=== PATIENT | female | born 1970 | race African-American/Black ===

== ENCOUNTER 2018-11-06 10:15 | Emergency (ER) | payer OTHER ==
[~2018-11-06] VITALS: Ht 167.6 cm; Wt 68.0 kg
[2018-11-06] MEDS ORDERED: ACETAMINOPHEN WITH CODEINE 300/30MG TABLET PO ONE (11:00)
[2018-11-06 12:28] LABS: BASOPHILS % 0.5 % (0.0-2.0); EOSINOPHILS % 2.3 % (0.0-5.0); HEMATOCRIT. 40.2 % (36.0-48.0); HEMOGLOBIN. 13.2 g/dL (12.0-16.0); LYMPHOCYTES % 19.8 % (20.0-50.0); MEAN CORPUSCULAR VOLUME 87.8 fL (81.0-99.0); MEAN PLATELET VOLUME 8.2 fl (7.4-10.4); MONOCYTES % 8.4 % (2.0-8.0); PLATELET 251 x1000/uL (130-400); RED BLOOD CELL COUNT 4.57 mill/uL (4.2-5.4); RED CELL DISTRIBUTION WIDTH 14.7 % (11.6-14.6)
[2018-11-06 12:35] LABS: CHLORIDE 103 mEq/L (98-107)
[2018-11-06 13:31] LABS: *AMPHETAMINES SCREEN URINE NEGATIVE (NEGATIVE); *BARBITURATES SCREEN URINE NEGATIVE (NEGATIVE)
[2018-11-06 13:32] LABS: *BENZODIAZEPINES SCREEN URINE NEGATIVE (NEGATIVE); METHADONE URINE SCREEN NEGATIVE (NEGATIVE)
[2018-11-06 13:33] LABS: CANNABINOID URINE SCREEN NEGATIVE (NEGATIVE); PHENCYCLIDINE URINE SCREEN NEGATIVE (NEGATIVE)
[2018-11-06 13:36] VITALS: BP 123/79
[2018-11-06 13:40] LABS: *COCAINE SCREEN URINE PRESUMTIVE POSITIVE (NEGATIVE); OPIATES URINE SCREEN PRESUMTIVE POSITIVE (NEGATIVE)
== END 2018-11-06 13:59 | disposition home or self-care (01) ==
LOC: ER 10:15
DX: R07.89 Other chest pain (principal); Z86.19 Personal history of other infectious and parasitic diseases; Z88.0 Allergy status to penicillin
CPT/HCPCS: 36415; 71045; 80305; 83880; 84484; 93005; 99284

== ENCOUNTER 2024-07-26 14:31 | Inpatient (IN) | payer MEDICAID, OTHER ==
[2024-07-25 22:30] VITALS: BP 125/86; PULSE 66; RESP 18; TEMP 36.2; O2SAT 97
[~2024-07-26] VITALS: Ht 162.6 cm; Wt 57.2 kg
[2024-07-26 14:36] VITALS: O2SAT 99
[2024-07-26 15:39] LABS: BASOPHILS % 1.1 % (0.0-2.0); EOSINOPHILS % 5.4 % (0.0-5.0); HEMOGLOBIN. 8.3 g/dL (12.0-16.0); LYMPHOCYTES % 25.5 % (20.0-50.0); MEAN CORPUSCULAR HEMOGLOBIN 27.9 pg (28.0-32.0); MEAN CORPUSCULAR HGB CONC 31.9 g/dL (31.0-37.0); MEAN CORPUSCULAR VOLUME 87.3 fL (81.0-99.0); MEAN PLATELET VOLUME 7.3 fl (7.4-10.4); MONOCYTES % 6.4 % (2.0-8.0); NEUTROPHILS % 61.6 % (40.0-76.0); PLATELET 293 x1000/uL (130-400); RED BLOOD CELL COUNT 2.98 mill/uL (4.2-5.4); RED CELL DISTRIBUTION WIDTH 18.7 % (11.6-14.6)
[2024-07-26 15:47] LABS: CHLORIDE 105 mEq/L (98-107); POTASSIUM 4.6 mEq/L (3.5-5.1); SODIUM 141 mEq/L (136-145)
[2024-07-26 15:48] LABS: CALCIUM 6.5 mg/dL (8.7-10.4); CARBON DIOXIDE 18 mEq/L (21-32)
[2024-07-26 15:53] LABS: GLUCOSE 98 mg/dL (70-105)
[2024-07-26 15:55] LABS: TROPONIN I HIGH SENSITIVITY 17 ng/L (3.0-34)
[2024-07-26 16:01] LABS: CREATININE 10.3 mg/dL (0.6-1.0); UREA NITROGEN BLOOD 103 mg/dL (9-23)
[2024-07-26 17:22] LABS: INR 0.9; PROTHROMBIN TIME 10.1 sec (9.6-11.0)
[2024-07-26 22:30] VITALS: BP 125/86; PULSE 66; RESP 18; TEMP 36.2; O2SAT 97
[2024-07-26 22:54] VITALS: BP 125/86; PULSE 66; RESP 18; TEMP 36.2
[2024-07-26] MEDS ORDERED: DEXTROSE 50% WATER 50ML SYRINGE IV PRN (23:00)
[2024-07-27] VITALS (13 sets, daily range): BP systolic 81–135; BP diastolic 54–83; PULSE 50–75; RESP 18–20; TEMP 36.114–36.7; O2SAT 20–100
[2024-07-27] MEDS: BLOOD SUGAR DIAGNOSTIC STRIP TEST SCH (06:00)
[2024-07-27 07:11] LABS: POTASSIUM 4.4 mEq/L (3.5-5.1)
[2024-07-27 07:12] LABS: CALCIUM 6.4 mg/dL (8.7-10.4)
[2024-07-27 07:13] LABS: BASOPHILS % 0.9 % (0.0-2.0); DIFFERENTIAL COMMENT 0; EOSINOPHILS % 9.9 % (0.0-5.0); HEMATOCRIT. 25.9 % (36.0-48.0); HEMOGLOBIN. 8.3 g/dL (12.0-16.0); MEAN CORPUSCULAR HEMOGLOBIN 27.6 pg (28.0-32.0); MEAN CORPUSCULAR HGB CONC 31.9 g/dL (31.0-37.0); MEAN CORPUSCULAR VOLUME 86.3 fL (81.0-99.0); MEAN PLATELET VOLUME 7.4 fl (7.4-10.4); NEUTROPHILS % 40.2 % (40.0-76.0); PLATELET 280 x1000/uL (130-400); RED CELL DISTRIBUTION WIDTH 19.2 % (11.6-14.6); WHITE BLOOD COUNT 3.4 x1000/uL (4.5-11.0)
[2024-07-27] MEDS: INSULIN LISPRO 100 UNITS/ML SUBCUT SCH (08:00)
[2024-07-27] MEDS: AMLODIPINE 10MG TABLET PO SCH (08:31)
[2024-07-27] MEDS: ASPIRIN 81MG TABLET PO SCH (08:33)
[2024-07-27] MEDS: FOLIC ACID/VITAMIN B COMP W-C TABLET PO SCH (08:33)
[2024-07-27 08:35] LABS: CREATININE 10.5 mg/dL (0.6-1.0)
[2024-07-27 08:37] LABS: PHOSPHORUS 10.7 mg/dL (2.5-4.9)
[2024-07-27] MEDS: SEVELAMER CARBONATE 800 MG TABLET PO SCH (17:56)
[2024-07-27 19:05] LABS: PHOSPHORUS 10.5 mg/dL (2.5-4.9)
[2024-07-27 19:16] LABS: HEPATITIS B SURFACE ANTIGEN NEGATIVE (Negative)
[2024-07-27 19:36] LABS: HEPATITIS A AB IGM NEGATIVE (Negative)
[2024-07-27 19:37] LABS: HEPATITIS B CORE AB IGM NEGATIVE (Negative)
[2024-07-27 20:03] LABS: HEPATITIS C AB REACTIVE (Pos) (Negative)
[2024-07-27] MEDS: SODIUM BICARBONATE 650MG TABLET PO SCH (23:05)
[2024-07-28] VITALS (7 sets, daily range): BP systolic 100–127; BP diastolic 52–75; PULSE 57–97; RESP 17–18; TEMP 36.5–36.7; O2SAT 95–100
[2024-07-28 07:33] LABS: CALCIUM 7.1 mg/dL (8.7-10.4); CHLORIDE 105 mEq/L (98-107); POTASSIUM 3.8 mEq/L (3.5-5.1); SODIUM 142 mEq/L (136-145)
[2024-07-28 07:34] LABS: CARBON DIOXIDE 24 mEq/L (21-32)
[2024-07-28 07:39] LABS: GLUCOSE 63 mg/dL (70-105); UREA NITROGEN BLOOD 48 mg/dL (9-23)
[2024-07-28 07:41] LABS: PHOSPHORUS 5.2 mg/dL (2.5-4.9)
[2024-07-28 08:08] LABS: CREATININE 6.4 mg/dL (0.6-1.0)
[2024-07-28] MEDS: CALCIUM 1250MG TABLET (500MG ELEMENTAL CALCIUM) PO SCH (11:00)
[2024-07-28] MEDS: SODIUM HYPOCHLORITE 0.125% 473ML SOLUTION TOP SCH (12:30)
[2024-07-28 17:07] LABS: BASOPHILS % 0.9 % (0.0-2.0); DIFFERENTIAL COMMENT 0; EOSINOPHILS % 5.3 % (0.0-5.0); HEMATOCRIT. 28.9 % (36.0-48.0); HEMOGLOBIN. 9.1 g/dL (12.0-16.0); LYMPHOCYTES % 27.6 % (20.0-50.0); MEAN CORPUSCULAR HEMOGLOBIN 27.3 pg (28.0-32.0); MEAN CORPUSCULAR HGB CONC 31.5 g/dL (31.0-37.0); MEAN CORPUSCULAR VOLUME 86.5 fL (81.0-99.0); MEAN PLATELET VOLUME 7.5 fl (7.4-10.4); MONOCYTES % 11.7 % (2.0-8.0); NEUTROPHILS % 54.5 % (40.0-76.0); PLATELET 286 x1000/uL (130-400); RED BLOOD CELL COUNT 3.35 mill/uL (4.2-5.4); RED CELL DISTRIBUTION WIDTH 19.9 % (11.6-14.6); WHITE BLOOD COUNT 4.2 x1000/uL (4.5-11.0)
[2024-07-29] VITALS (13 sets, daily range): BP systolic 108–141; BP diastolic 61–86; PULSE 6–75; RESP 14–20; TEMP 36.2–36.7; O2SAT 97–100
[2024-07-29 06:08] LABS: COMPLEMENT C3 84 mg/dL (82-167); COMPLEMENT C4 23 mg/dL (12-38)
[2024-07-29] MEDS: EPOETIN ALFA-EPBX 4,000 UNIT/ML VIAL SUBCUT SCH (20:58)
[2024-07-30] VITALS: BP 123/63; PULSE 81; RESP 20; TEMP 37; O2SAT 97
[2024-07-30 04:00] VITALS: BP 119/61; PULSE 71; RESP 20; TEMP 36.8; O2SAT 97
[2024-07-30 08:11] VITALS: BP 145/72; PULSE 77; RESP 17; TEMP 37.2; O2SAT 100
[2024-07-30 08:53] LABS: CARBON DIOXIDE 22 mEq/L (21-32); CHLORIDE 106 mEq/L (98-107); POTASSIUM 4.4 mEq/L (3.5-5.1); SODIUM 141 mEq/L (136-145)
[2024-07-30 08:54] LABS: CALCIUM 7.3 mg/dL (8.7-10.4)
[2024-07-30 08:58] LABS: GLUCOSE 78 mg/dL (70-105)
[2024-07-30 08:59] LABS: UREA NITROGEN BLOOD 55 mg/dL (9-23)
[2024-07-30 09:01] LABS: PHOSPHORUS 4.7 mg/dL (2.5-4.9)
[2024-07-30 09:10] LABS: CREATININE 7.3 mg/dL (0.6-1.0)
[2024-07-30 12:25] VITALS: BP 126/77; PULSE 72; RESP 20; TEMP 36.1; O2SAT 99
== END 2024-07-30 13:30 | disposition left against medical advice (07) | DRG 470 ==
LOC: ER 14:31 → EDBEDREQ 18:50 → EDBEDREQTM 18:50 → ENRESERV 22:01 → 7WST 22:06
PROVIDERS: ADMIT Internal Medicine; ATTEND Internal Medicine
PROC: 5A1D70Z Performance of Urinary Filtration, Intermittent, Less than 6 Hours Per Day (ICD-10-PCS; principal; 2024-07-27)
PROC: 5A1D70Z Performance of Urinary Filtration, Intermittent, Less than 6 Hours Per Day (ICD-10-PCS; 2024-07-29)
DX: I12.0 Hypertensive chronic kidney disease with stage 5 chronic kidney disease or end stage renal disease (principal); E87.20 Acidosis, unspecified; D72.10 Eosinophilia, unspecified; E83.39 Other disorders of phosphorus metabolism; N18.6 End stage renal disease; E83.51 Hypocalcemia; E11.22 Type 2 diabetes mellitus with diabetic chronic kidney disease; L03.116 Cellulitis of left lower limb; D64.9 Anemia, unspecified; Z99.2 Dependence on renal dialysis; L98.492 Non-pressure chronic ulcer of skin of other sites with fat layer exposed; Z59.00 Homelessness unspecified; Z91.158 Patient's noncompliance with renal dialysis for other reason; Z88.0 Allergy status to penicillin; Z53.29 Procedure and treatment not carried out because of patient's decision for other reasons
CPT/HCPCS: 36415; 71045; 80048; 80061; 82040; 82962; 83036; 83735; 83880; 84100; 84484; 85025; 85651; 86038; 86160; 86705; 86709; 87340; 90935; 93005; 99285; A4606; J0885; J1815